=== PATIENT | male | born 1995 | race American Indian/Alaskan Native ===

== ENCOUNTER 2019-08-27 12:40 | Emergency (ER) | payer SELFPAY ==
[2019-08-27 13:15] VITALS: BP 120/87
--- NOTE | 2019-08-27 15:47 | Emergency Department Report ---
Chief Complaint: Medical Clearance Stated Complaint: STOMACH PAIN Time Seen by Provider: 08/27/19 15:36 - HPI History of Present Illness: This is a 24-year-old male nontoxic, well nourished in appearance, no acute signs of distress presents to the ED for a work excuse. Patient stated that he had some alcohol drinks last night and had some abdominal cramping this morning and nausea but has resolved since then. Patient stated that he called his job which they instructed patient needs a work excuse. Patient denies any symptoms in the ED. Denies any vomiting. Patient denies abdominal pain, chest pain, short of breath, fever, hemoptysis, blood in stool, chills, headache, stiff neck, numbness or tingling. Patient denies any diarrhea or constipation. Denies any blood in stool. Patient denies any recent travels. - Exam Vital Signs: Vital Signs 08/27/19 13:11 Temperature 98 F Pulse Rate 76 Respiratory 20 Rate Blood Pressure 120/87 O2 Sat by Pulse 100 Oximetry Physical Exam: My physical exam GENERAL: The patient is a well-developed, well-nourished in no apparent distress. Patient is alert and acting appropriately for age. Alert and oriented 3, no apparent distress, normal gait, atraumatic. LUNGS: Clear to auscultation. Non labor breathing. No intercostal retractions. Symmetrical with respiration, no wheezing, no rales, or crackles. HEART: Regular rate and rhythm without murmur, rubs or gallops. No reproducible. S1, S2 present, regular rate and rhythm without murmur, no rubs, no gallops. ABDOMEN: Soft, nontender, and nondistended. Positive bowel sounds. No hepatosplenomegaly was noted. No guarding or rebound tenderness, negative epigastric bruit. Negative psoas sign, negative manzano sign, negative McBurneys sign MSE screening note: Focused history and physical exam performed. Due to findings the following was ordered: ED Medical Decision Making - Medical Decision Making This is a 24-year-old male that presents with a nonmedical emergency. Patient is stable and was examined by me. Abdomen exam is unremarkable. No acute abdomen noted. Currently patient is asymptomatic. Patient was referred to follow-up with a primary care doctor in 3-5 days or if symptoms worsen and continue return to emergency room as soon as possible. At time of discharge, t he patient does not seem toxic or ill in appearance. No acute signs of distress noted. Patient agrees to discharge treatment plan of care. No further questions noted by the patient. ED Disposition for MSE Clinical Impression: Encounter to obtain excuse from work Disposition: MED SCREENING EXAM-LEFT Is pt being admited?: No Does the pt Need Aspirin: No Condition: Stable Additional Instructions: Follow-up with a primary care doctor in 3-5 days or if symptoms worsen and continue return to emergency room as soon as possible. Referrals: PRIMARY MD [place] [Primary Care Provider] - 3-5 Days SUMAN SHORT MD [Staff Physician] - 3-5 Days
== END 2019-08-27 16:56 | disposition left against medical advice (07) ==
LOC: ED 12:40
DX: R10.9 Unspecified abdominal pain (principal); Z53.21 Procedure and treatment not carried out due to patient leaving prior to being seen by health care provider

== ENCOUNTER 2020-09-01 17:25 | Emergency (ER) | payer SELFPAY ==
[2020-09-01 19:33] VITALS: BP 123/79
[2020-09-01] MEDS ORDERED: HYDROcodone/ACETAMINOPHEN 5-325 MG TAB PO STA (20:25)
== END 2020-09-01 20:40 | disposition home or self-care (01) ==
LOC: ED 17:25
DX: H66.92 Otitis media, unspecified, left ear (principal); Z98.890 Other specified postprocedural states; Z79.899 Other long term (current) drug therapy
CPT/HCPCS: 99282